=== PATIENT | male | born 1950 | race African-American/Black ===

== ENCOUNTER → 2016-07-24 | Outpatient (CLI) | payer MEDICARE, OTHER ==
[~2016-07-24] MED LIST: CRESTOR10 MG PO; HYDROCODON-ACE1 EAC5 PO; INTRALIPID IV; MARY'S MAGIC POTION PO; METFORMIN PO; PROTONIX20 MG PO; TPN ELECTROLYTE20 M2 IV; [UNRECOGNIZED DRUG - OTHER] PO
--- NOTE | ~2016-07-24 | CT55 ---
[facility] A Service of [facility] RADIOLOGY TEXT RESULTS PATIENT: MIHAEL[facility] ELIAS [facility] 54 UNIT #: [id number] AGE: [address]: Heath Parsons MD SEX: M ORDER DR: [id number] [facility] [address] [place], [place] [address] [id number] MR#: [id number] Acc #: [id number] NAME: MIHAELA ELIAS : 1950 SEX: M STUDY DATE/TIME: 07/24/2016 14:55 UNIT: CCAT ROOM: STUDY DESCRIPTION: CT Chest W Con Attending Physician: Heath Parsons M.D. Referring Physician: Sammy Bhakta M.D. Ordering Physician: Heath Parsons M.D. Primary Care Physician: Sosa Ott M.D. MEDICAL IMAGING REPORT This report is preliminary unless electronic signature is present REVISED REPORT SEE ADDENDUM EXAM Chest CT with contrast. DATE OF EXAM 07/24/2016 CLINICAL HISTORY History of tongue cancer. Observation of suspected metastatic malignancy. TECHNIQUE NOTE: This CT exam was performed with one or more of the following radiation dose reduction techniques: automatic exposure control, adjustment of mA and/or kV according to patient size, and iterative reconstruction. FINDINGS Prior chest CT demonstrated multiple, essentially necrotic/cystic nodular densities, and these all appear improved. A practice representative lesion in the right mid-lung previously measured about 2.4 x 1.9 cm, and now is mostly linear and may measure up to 1.2 x 1.1 cm. A peripheral lesion in the right lateral apex previously measured about 1.3 x 1.4 cm, and now measures about 1.3 x 0.7 cm, and again is quite linear. Again, the remainder of the lesions throughout the right lung are generally smaller, less prominent and their cystic appearance has resolved, and no new lesions are seen. On the left, the few lesions seen previously are less prominent to resolve on then current exam, and no new lesions are seen. There is no mediastinal mass or mediastinal adenopathy. There is some mildly prominent axillary lymph nodes, which appear unchanged since the prior study and their significance is uncertain, but there is no STS. [facility] A Service of [facility] RADIOLOGY TEXT RESULTS PATIENT: MIHAELA ELIAS LOCATION: [facility] : 54 UNIT #: [id number] AGE: [address]: Heath Parsons MD SEX: M ORDER DR: mediastinal or hilar adenopathy. Unusual, somewhat ill-defined soft tissue thickening in the anterior chest wall at about the level of the lower sternal margin is redemonstrated and stable. It is about 7.2 x 1.5 cm currently, not convincingly changed since the prior study. No new soft tissue changes are seen. Images of the upper abdomen are unremarkable. There are spinal degenerative change, but no acute bony abnormality. IMPRESSION Multiple pulmonary nodular density seen on the PET/CT of 06/16/2016 have clearly improved and are mostly smaller and linear and appear to represent developing scar tissue currently. No new lesions are seen. There is no mediastinal or hilar adenopathy and mildly prominent axillary nodes are unchanged. Unusual soft tissue thickening over the lower anterior chest wall is unchanged since the prior study. No new abnormality. Dictated by... Celso Smith M.D. THIS IS AN ELECTRONICALLY VERIFIED REPORT Celso Smith M.D. at 07/28/2016 4:32 PM REGINO/luly TD: 07/25/2016 16:08 JOB #: [id number] ADDENDUM In addition to the above findings, there is a mass in the tail of the pancreas. It is difficult to measure precisely. It measures about 3.9 x 2.6 x 3.[address] examination of October 2014, it was also present and measured at that time at about 2.2 x 3.3 x 3.3 cm. It is clearly increased in size since the previous exam, but only moderately. It has an aggressive appearance, however, and further follow up recommended. Discussion with Dr. Lux this afternoon regarding the mass suggests also that because of the difficulty in obtaining tissue surgically and the requirement for a large procedure, it would be reasonable to attempt a needle aspiration from a posterior approach in an attempt to achieve a tissue diagnosis prior to surgery, if needed. [facility] A Service of [facility] RADIOLOGY TEXT RESULTS PATIENT: MIHAELA ELIAS LOCATION: [facility] : 54 UNIT #: [id number] AGE: [address]: Heath Parsons MD SEX: M ORDER DR: Dictated by... Celso Smith M.D. THIS IS AN ELECTRONICALLY VERIFIED REPORT Celso Smith M.D. at 09/29/2016 10:35 AM REGINO/yamileth TD: 09/25/2016 16:25 JOB #: [id number] MEDICAL IMAGING REPORT Page 1 of 1 COPY
[2016-07-24 14:45] LABS: POC - GFR >60.0 mL/min (>60)
== END | disposition home or self-care (01) ==
LOC: CCAT 12:47
PROVIDERS: Internal Medicine Medical Oncology
DX: C01 Malignant neoplasm of base of tongue (principal); D47.0 Mast cell neoplasms of uncertain behavior; D50.9 Iron deficiency anemia, unspecified; K12.31 Oral mucositis (ulcerative) due to antineoplastic therapy; J98.4 Other disorders of lung
CPT/HCPCS: 71260; 82565; Q9967